=== PATIENT | female | born 1975 | race Caucasian/White ===

== ENCOUNTER 2025-01-21 11:45 | Emergency (ER) | payer SELFPAY ==
[2025-01-21] MEDS ORDERED: Ketorolac Tromethamine 30 MG (1 mL) VIAL ONE (13:43)
== END 2025-01-21 14:21 | disposition home or self-care (01) ==
LOC: ERS 11:45
DX: M25.561 Pain in right knee (principal)
CPT/HCPCS: 96372; J1885